=== PATIENT | female | born 1995 | race Caucasian/White ===

== ENCOUNTER 2024-08-12 10:14 | Emergency (ER) | payer BC ==
[~2024-08-12] VITALS: Ht 162.6 cm; Wt 62.0 kg
[2024-08-12] MEDS ORDERED: SODIUM CHLORIDE 0.9% 1,000 ML IV ONE (11:00)
[2024-08-12] MEDS ORDERED: CEFTRIAXONE SODIUM 2 GM in SODIUM CHLORIDE 0.9% 100 ML IV ONE (11:00)
[2024-08-12 11:08] LABS: EOSINOPHILS 3.9 % (0-6); HEMATOCRIT 38.7 % (35.0-50.0); HEMOGLOBIN 13.5 g/dL (12.0-18.0); LYMPHOCYTES 5.2 % (24-44); MCH 34.4 (27-36); MCHC 34.9 g/dl (30-36); MCV 98.4 fl (81-99); MONOCYTES 5.9 % (0-12); PLATELET COUNT 160 K/uL (140-440); RBC 3.93 M/ul (4.3-5.7); RDW 14.1 (10.5-15.0)
[2024-08-12] MEDS ORDERED: ACETAMINOPHEN 500 MG TAB PO ONE (11:15)
[2024-08-12] MEDS ORDERED: ALBUTEROL/IPRATROPIUM 3 ML NEB INH ONE (11:15)
[2024-08-12 11:19] LABS: ALBUMIN 4.4 g/dL (3.4-5.0); ALBUMIN/GLOBULIN RATIO 1.13 (1.1-2.4); ANION GAP 18.6 (7-21); BILIRUBIN, TOTAL 0.8 mg/dL (0.2-1.0); BUN/CREATININE RATIO 5.47 (6.0-28.6); CALCIUM 9.1 mg/dL (8.5-10.1); CREATININE, SERUM 0.73 mg/dL (0.55-1.02); POTASSIUM 3.6 mmol/L (3.5-5.1); PROTEIN, TOTAL 8.3 g/dL (6.4-8.2)
[2024-08-12 11:27] LABS: CORONAVIRUS COVID-19 AG NEGATIVE (NEGATIVE); INFLUENZA A AG NEGATIVE (NEGATIVE); INFLUENZA B AG NEGATIVE (NEGATIVE)
[2024-08-12] MEDS ORDERED: KETOROLAC TROMETHAMINE 15 MG/ML VIAL IV ONE (11:30)
[2024-08-12 11:39] LABS: LACTIC ACID, BLOOD 1.9 mmol/L (0.4-2.0)
[2024-08-12] MEDS ORDERED: methylPREDNISolone SOD SUCC 125 MG/2 ML VIAL IV ONE (12:00)
[2024-08-12] MEDS ORDERED: VENTOLIN HFA18 GM INH (12:36)
[2024-08-12] MEDS ORDERED: PREDNISONE20 MG PO (12:36)
[2024-08-12 13:17] VITALS: BP 134/101
== END 2024-08-12 13:18 | disposition home or self-care (01) ==
LOC: ED 10:14
PROVIDERS: Emergency Medicine
DX: J20.9 Acute bronchitis, unspecified (principal)
CPT/HCPCS: 36415; 71045; 80053; 83605; 85025; 85379; 87040; 87502; 94640; 96365; 96375; 99285-25; A9270; J0696; J1885; J2919; J7030; U0002